=== PATIENT | male | born 2000 | race Hispanic/Latino ===

== ENCOUNTER 2023-12-17 20:23 | Inpatient (IN) | payer SELFPAY ==
[~2023-12-17] VITALS: Ht 177.8 cm; Wt 88.7 kg
[2023-12-17] MEDS ORDERED: DOXY-440 PO (21:27)
[2023-12-17 22:29] LABS: ERYTHROCYTE SEDIMENTATION RATE 5 mm/hr (0-15)
[2023-12-17] MEDS: ACETAMINOPHEN 500 MG TAB PO ONE (22:37)
[2023-12-17 22:51] LABS: BASO % 0.2 % (0.0-1.0); HEMATOCRIT 38.7 % (42.0-52.0); HEMOGLOBIN 13.8 g/dl (13.5-17.5); LYMPH # 0.6 10^3/uL (1.5-5.0); LYMPH % 2.8 % (24.0-44.0); MEAN CORPUSCULAR HEMOGLOBIN 31.9 pg (27.0-33.0); MEAN CORPUSCULAR HGB CONC 35.7 g/dl (32.0-36.5); MEAN CORPUSCULAR VOLUME 89.4 fl (80.0-96.0); MONO # 0.8 10^3/uL (0.0-0.8); MONO % 4.3 % (2.0-8.0); NEUTROPHILS # 17.8 10^3/uL (1.5-8.5); PLATELET COUNT, AUTOMATED 286 10^3/uL (150-450); RED BLOOD COUNT 4.33 10^6/uL (4.30-6.10); WHITE BLOOD COUNT 19.3 10^3/uL (4.0-10.0)
[2023-12-17 22:57] LABS: ALBUMIN 4.2 G/DL (3.2-5.2); ALKALINE PHOSPHATASE 69 U/L (46-116); ALT/SGPT 13 U/L (7.0-40); AST/SGOT < 8 U/L (<34); BILIRUBIN,DIRECT 0.2 MG/DL (<0.4); BILIRUBIN,TOTAL 0.6 MG/DL (0.3-1.2); BLOOD UREA NITROGEN 10 MG/DL (9-23); CALCIUM LEVEL 9.6 MG/DL (8.5-10.1); CARBON DIOXIDE LEVEL 27 MMOL/L (20-31); CHLORIDE LEVEL 104 MMOL/L (98-107); CREATININE FOR GFR 0.69 MG/DL (0.70-1.30); GLOMERULAR FILTRATION RATE > 60.0 (>60); GLUCOSE, FASTING 116 MG/DL (60-100); POTASSIUM SERUM 3.9 MMOL/L (3.5-5.1); SODIUM LEVEL 137 MMOL/L (136-145); TOTAL PROTEIN 7.6 G/DL (5.7-8.2)
[2023-12-17] MEDS: ceFAZolin SOD 2 GM in IV 1 EA IV ONE (23:47)
[2023-12-18] VITALS (7 sets, daily range): BP systolic 101–127; BP diastolic 59–77; TEMP 97.2–98.1; O2SAT 96–98
[2023-12-18] MEDS ORDERED: MAALOX 30 ML SUSP *UDC PO PRN (01:05)
[2023-12-18] MEDS ORDERED: ACETAMINOPHEN 325 MG TAB PO PRN (01:05)
[2023-12-18] MEDS ORDERED: MOM 30ML SUSPENSION UDC PO PRN (01:05)
[2023-12-18] MEDS: ceFAZolin SOD 2 GM in IV 1 EA IV SCH ×2 (02:06→08:04)
[2023-12-18] MEDS: BOOSTRIX VACCINE (TETANUS/DIPHTH/ACEL. PERTUSSIS) 0.5ML SYR IM ONE (02:42)
[2023-12-18] MEDS ORDERED: HOME MED LIST COMPLETE! XX SCH (06:15)
[2023-12-18] MEDS: DOCUSATE SODIUM 100MG CAPSULE PO SCH (08:14)
[2023-12-18] MEDS: ENOXAPARIN 40MG/0.4ML SYRINGE (J1650 PER 10MG) SC SCH (08:15)
[2023-12-18 09:43] LABS: BASO % 0.4 % (0.0-1.0); EOS % 0.5 % (0.0-3.0); HEMATOCRIT 37.8 % (42.0-52.0); HEMOGLOBIN 13.5 g/dl (13.5-17.5); LYMPH # 1.2 10^3/uL (1.5-5.0); LYMPH % 14.7 % (24.0-44.0); MEAN CORPUSCULAR HEMOGLOBIN 31.8 pg (27.0-33.0); MEAN CORPUSCULAR HGB CONC 35.7 g/dl (32.0-36.5); MEAN CORPUSCULAR VOLUME 88.9 fl (80.0-96.0); MONO # 0.6 10^3/uL (0.0-0.8); NEUTROPHILS # 6.1 10^3/uL (1.5-8.5); PLATELET COUNT, AUTOMATED 268 10^3/uL (150-450); RED BLOOD COUNT 4.25 10^6/uL (4.30-6.10)
[2023-12-18 10:00] LABS: BLOOD UREA NITROGEN 10 MG/DL (9-23); CALCIUM LEVEL 9.7 MG/DL (8.5-10.1); CARBON DIOXIDE LEVEL 28 MMOL/L (20-31); CHLORIDE LEVEL 102 MMOL/L (98-107); CREATININE FOR GFR 0.75 MG/DL (0.70-1.30); GLOMERULAR FILTRATION RATE > 60.0 (>60); GLUCOSE, FASTING 103 MG/DL (60-100); POTASSIUM SERUM 3.6 MMOL/L (3.5-5.1); SODIUM LEVEL 137 MMOL/L (136-145)
[2023-12-19 04:19] VITALS: BP 119/67; TEMP 97.3; O2SAT 98
[2023-12-19 08:00] VITALS: BP 118/66; TEMP 97.2; O2SAT 97
[2023-12-19] MEDS ORDERED: CEFA500C2 PO (08:08)
== END 2023-12-19 09:45 | disposition home or self-care (01) | DRG 720 ==
LOC: M ED 20:23 → M ED INP 23:55 → M MS5PR 12-18 01:35
PROVIDERS: ADMIT Student in an Organized Health Care Education/Training Program; ATTEND Student in an Organized Health Care Education/Training Program
DX: A41.9 Sepsis, unspecified organism (principal); L03.115 Cellulitis of right lower limb; F12.90 Cannabis use, unspecified, uncomplicated

== ENCOUNTER 2024-01-05 12:12 | Emergency (ER) | payer SELFPAY ==
[~2024-01-05] VITALS: Ht 177.8 cm; Wt 87.8 kg
[~2024-01-05 12:12] MED LIST: CEFA500C2 PO; DOXY-440 PO
[2024-01-05 16:47] VITALS: BP 122/67; TEMP 97.2; O2SAT 100
== END 2024-01-05 16:48 | disposition home or self-care (01) ==
LOC: M ED 12:12
DX: R68.84 Jaw pain (principal); F17.200 Nicotine dependence, unspecified, uncomplicated